=== PATIENT | male | born 1975 | race Two or more races ===

== ENCOUNTER 2018-04-18 20:27 | Emergency (ER) | payer OTHER ==
--- NOTE | 2018-04-18 21:09 | EDM.PDOC ---
ED HPI GENERAL MEDICAL PROBLEM - General Chief Complaint: Fever Stated Complaint: PT HAS FEVER Time Seen by Provider: 04/18/18 21:02 - History of Present Illness INITIAL COMMENTS - FREE TEXT/NARRATIVE: HISTORY AND PHYSICAL: History of present illness: Patient's 42-year-old male presents with a concern of cough fever chest soreness with this cough over last several days he did not get an influenza immunization this year he is a smoker he denies nausea vomiting or other concern. Review of systems: As per history of present illness and below otherwise all systems reviewed and negative. Past medical history: As per history of present illness and as reviewed below otherwise noncontributory. Surgical history: As per history of present illness and as reviewed below otherwise noncontributory. Social history: No reported history of drug or alcohol abuse. Family history: As per history of present illness and as reviewed below otherwise noncontributory. Physical exam: HEENT: Atraumatic, normocephalic, pupils reactive, negative for conjunctival pallor or scleral icterus, mucous membranes moist, throat clear, neck supple, nontender, trachea midline. Lungs: Clear to auscultation, breath sounds equal bilaterally, chest nontender. Heart: S1S2, regular, negative for clicks, rubs, or JVD. Abdomen: Soft, nondistended, nontender. Negative for masses or hepatosplenomegaly. Negative for costovertebral tenderness. Pelvis: Stable nontender. Genitourinary: Deferred. Rectal: Deferred. Extremities: Atraumatic, negative for cords or calf pain. Neurovascular unremarkable. Neuro: Awake, alert, oriented. Cranial nerves II through XII unremarkable. Cerebellum unremarkable. Motor and sensory unremarkable throughout. Exam nonfocal. Diagnostics: EKG chest x-ray influenza screen Therapeutics: None Impression: #1 pneumonitis Definitive disposition and diagnosis as appropriate pending reevaluation and review of above. chest pain when coughing Pain Score (Numeric/FACES): 5 - Related Data Allergies Allergy/AdvReac Type Severity Reaction Status Date / Time No Known Allergies Allergy Verified 04/18/18 20:44 Home Meds: Home Meds . [No Known Home Meds] 04/18/18 [History] Past Medical History - Infectious Disease History Infectious Disease History: Reports: Chicken Pox - Past Surgical History Other Musculoskeletal Surgeries/Procedures:: knee surgery Social & Family History - Family History Family Medical History: Noncontributory - Tobacco Use Smoking Status *Q: Current Every Day Smoker Years of Tobacco use: 2 Packs/Tins Daily: 0.5 - Recreational Drug Use Recreational Drug Use: No ED ROS GENERAL - Review of Systems Review Of Systems: ROS reveals no pertinent complaints other than HPI. ED EXAM, GENERAL - Physical Exam Exam: See Below (See dictation) Course - Vital Signs Last Recorded V/S: Last Vital Signs Temp 36.7 C 04/18/18 20:45 Pulse 87 04/18/18 20:45 Resp 18 04/18/18 20:45 BP 150/84 H 04/18/18 20:45 Pulse Ox 97 04/18/18 20:45 - Orders/Labs/Meds Orders: Active Orders 24 hr Category Date Time Status EKG 12 Lead [EKG Documentation Completion] [RC] STAT Care 04/18/18 20:47 Active Chest 2V [CR] Stat Exams 04/18/18 20:47 Taken Departure - Departure Time of Disposition: 21:47 Disposition: Home, Self-Care 01 Condition: Good Clinical Impression: Pneumonitis - Discharge Information Referrals: PCP,None [Primary Care Provider] - Forms: ED Department Discharge Additional Instructions: The following information is given to patients seen in the emergency department who are being discharged to home. This information is to outline your options for follow-up care. We provide all patients seen in our emergency department with a follow-up referral. The need for follow-up, as well as the timing and circumstances, are variable depending upon the specifics of your emergency department visit. If you don't have a primary care physician on staff, we will provide you with a referral. We always advise you to contact your personal physician following an emergency department visit to inform them of the circumstance of the visit and for follow-up with them and/or the need for any referrals to a consulting specialist. The emergency department will also refer you to a specialist when appropriate. This referral assures that you have the opportunity for followup care with a specialist. All of these measure are taken in an effort to provide you with optimal care, which includes your followup. Under all circumstances we always encourage you to contact your private physician who remains a resource for coordinating your care. When calling for followup care, please make the office aware that this follow-up is from your recent emergency room visit. If for any reason you are refused follow-up, please contact the [facility] emergency department at and asked to speak to the emergency department charge nurse. [facility] [address] [place] [id number] Augmentin and albuterol as prescribed follow-up primary medical doctor and/or clinic above as needed as discussed and return as needed as discussed - My Orders Last 24 Hours: My Active Orders 04/18/18 20:47 EKG 12 Lead [EKG Documentation Completion] [RC] STAT Chest 2V [CR] Stat - Assessment/Plan Last 24 Hours: My Active Orders 04/18/18 20:47 EKG 12 Lead [EKG Documentation Completion] [RC] STAT Chest 2V [CR] Stat
--- NOTE | 2018-04-18 22:24 | CR ---
INDICATION: Shortness of breath, cough TECHNIQUE: Chest 2 views. COMPARISON: None FINDINGS: Cardiomediastinal silhouette: Within normal limits. Lungs and pleural spaces: No focal consolidation. No pulmonary edema. No pleural effusion or pneumothorax. Bones and soft tissues: Within normal limits. IMPRESSION: No acute pulmonary process. Dictated by Parvin Malone MD @ 04/18/2018 10:21:59 PM Dictated by: Parvin Malone MD @ 04/18/2018 22:22:06 (Electronically Signed)
== END 2018-04-18 21:56 | disposition home or self-care (01) ==
LOC: MW.ED 20:27
DX: J18.9 Pneumonia, unspecified organism (principal); F17.210 Nicotine dependence, cigarettes, uncomplicated
CPT/HCPCS: 71046; 71046-26; 87804; 93005; 99283; 99284-25